=== PATIENT | female | born 1990 | race Asian ===

== ENCOUNTER 2020-08-13 08:16 | Day surgery (SDC) | payer BC ==
[2020-08-13 09:01] VITALS: BMI 24.3
[2020-08-13] MEDS ORDERED: hydrALAZINE 20 MG/ML VIAL SLOW IVP PRN (10:07)
== END 2020-08-13 12:13 | disposition home health service (06) ==
LOC: CSHLD/OP 08:16
PROVIDERS: ATTEND Student in an Organized Health Care Education/Training Program
DX: O47.1 False labor at or after 37 completed weeks of gestation (principal); Z3A.39 39 weeks gestation of pregnancy; Z88.8 Allergy status to other drugs, medicaments and biological substances
CPT/HCPCS: 99281

== ENCOUNTER 2020-08-14 03:29 | Inpatient (IN) | payer BC ==
[2020-08-14 03:48] VITALS: BMI 23.6
[2020-08-14] MEDS ORDERED: hydrALAZINE 20 MG/ML VIAL SLOW IVP PRN ×3 (04:25→16:16)
[2020-08-14] MEDS ORDERED: Ibuprofen 800 MG TAB PO PRN (06:50)
[2020-08-14] MEDS ORDERED: Ondansetron PF 4 MG/2 ML Vial IVP PRN ×3 (06:50→16:16)
[2020-08-14] MEDS ORDERED: Promethazine HCl 25 MG/ML VIAL IM PRN ×3 (06:50→16:16)
[2020-08-14] MEDS ORDERED: Butorphanol Tartrate 1 MG/ML VIAL SLOW IVP PRN (06:50)
[2020-08-14] MEDS ORDERED: Acetaminophen/Codeine 30-300mg Tablet PO PRN ×2 (06:50)
[2020-08-14] MEDS ORDERED: Lidocaine 1% (PF) 30 ML VIAL SC PRN (06:50)
[2020-08-14] MEDS: Lactated Ringer's 1,000 ML IV SCH ×2 (07:08→08:24)
[2020-08-14] MEDS ORDERED: Fentanyl 4 mcg/Bup 0.1% Cadd 100 ML ONE (07:30)
[2020-08-14 07:44] LABS: Hemoglobin 13.2 g/dL (12.0-15.5); Mean Corpuscular HGB CONC 33.8 g/dL (32.0-36.0); Mean Corpuscular Hemoglobin 33.9 pg (27.0-33.0); Mean Corpuscular Volume 100.3 fl (81.6-98.3); Mean Platelet Volume 12.6 fl (7.4-10.4); Platelet Count 101 10x3/uL (150-450); RBC Distribution Width 12.5 % (11.5-14.5); Red Blood Cell (RBC) Count 3.89 10x6/uL (3.90-5.03)
[2020-08-14] MEDS ORDERED: diphenhydrAMINE 50 MG/ML VIAL IVP PRN (08:43)
[2020-08-14] MEDS ORDERED: Naloxone HCl 0.4 mg/ml Vial IVP PRN ×2 (08:43)
[2020-08-14] MEDS ORDERED: Acetaminophen 325 MG TAB PO PRN (08:43)
[2020-08-14] MEDS ORDERED: Lactated Ringer's 500 ML IV PRN (08:43)
[2020-08-14] MEDS ORDERED: Eucerin (Mineral Oil/Petrolatum,White) 30 gm Jar TOP PRN (08:43)
[2020-08-14 08:44] LABS: Hep B Surf Ag Non-Reactive S/CO (NonReactive)
[2020-08-14 08:45] LABS: Syphilis Antibody Nonreactive (Nonreactive); Syphilis Antibody Index 0.05 S/CO (<1.00 Non-Reactive)
[2020-08-14] MEDS ORDERED: Communication Order-Pharmacy FS SCH (08:45)
[2020-08-14 09:06] LABS: HBSAg Index 0.13 S/CO (0-0.99)
[2020-08-14] MEDS: NS w/ Oxytocin 30 units 500 ML IVPB PRN ×2 (09:12→14:00)
[2020-08-14] MEDS ORDERED: ePHEDrine Sulfate 50 MG/10 ML VIAL SLOW IVP PRN (09:49)
[2020-08-14] MEDS ORDERED: Fentanyl 4 mcg/Bup 0.1667% 200 ML CADD EPIDURAL SCH (10:00)
[2020-08-14] MEDS ORDERED: Carboprost 250 MCG/ML AMP ONE (12:01)
[2020-08-14] MEDS ORDERED: Misoprostol 200 MCG TAB ONE (12:01)
[2020-08-14] MEDS ORDERED: Methylergonovine 0.2 MG/ML VIAL ONE (12:01)
[2020-08-14] MEDS ORDERED: Zolpidem Tartrate 5 MG TAB PO PRN (16:16)
[2020-08-14] MEDS ORDERED: Lanolin Ointment 7 GM TUBE TOP PRN (16:16)
[2020-08-14] MEDS ORDERED: diphenhydrAMINE 25 MG CAP PO PRN (16:16)
[2020-08-14] MEDS ORDERED: Milk Of Magnesia 30 ML UDCUP PO PRN (16:16)
[2020-08-14] MEDS ORDERED: HYDROcodone/Acetaminophen 5/325 mg Tablet PO PRN ×2 (16:16)
[2020-08-14] MEDS ORDERED: Adacel (T-DAP) 0.5 ML SYRINGE IM ONE (16:16)
[2020-08-14] MEDS ORDERED: Bisacodyl 10 MG SUPP PR PRN (16:16)
[2020-08-14] MEDS ORDERED: Benzocaine-Menthol 82.5 ML CAN TOP PRN (16:16)
[2020-08-14] MEDS ORDERED: Preparation H Ointment 28 GM TUBE PR PRN (16:16)
[2020-08-14] MEDS: Ferrous Sulfate 325 MG TAB PO SCH (17:30)
[2020-08-14] MEDS: Ibuprofen 800 MG TAB PO SCH (21:05)
[2020-08-14] MEDS: Docusate Calcium (SURFAK) 240 MG CAP PO SCH (21:06)
[2020-08-14 21:46] LABS: SARS-CoV-2 PCR by NAA Not Detected (NotDetected)
[2020-08-15] MEDS: Ibuprofen 800 MG TAB PO SCH ×3 (05:26→21:40)
[2020-08-15] MEDS: Ferrous Sulfate 325 MG TAB PO SCH ×2 (08:17→16:40)
[2020-08-15] MEDS: Docusate Calcium (SURFAK) 240 MG CAP PO SCH ×2 (09:25→21:40)
[2020-08-15] MEDS: Prenatal Vitamin 1 TAB PO SCH (09:25)
[2020-08-15] MEDS ORDERED: Bupivacaine 0.25% HCL 30 ML VIAL ONE (09:36)
[2020-08-16] MEDS: Ibuprofen 800 MG TAB PO SCH (05:15)
[2020-08-16 07:55] VITALS: BP 98/50; TEMP 98.7
[2020-08-16] MEDS: Ferrous Sulfate 325 MG TAB PO SCH (08:09)
[2020-08-16] MEDS: Docusate Calcium (SURFAK) 240 MG CAP PO SCH (08:37)
[2020-08-16] MEDS: Prenatal Vitamin 1 TAB PO SCH (08:37)
== END 2020-08-16 13:45 | disposition home or self-care (01) | DRG 807 ==
LOC: CSHLD/OP 03:29 → CSHLD 07:49 → CSHPP 16:16
PROVIDERS: ADMIT Student in an Organized Health Care Education/Training Program; ATTEND Student in an Organized Health Care Education/Training Program
PROC: 10E0XZZ Delivery of Products of Conception, External Approach (ICD-10-PCS; principal; 2020-08-14)
PROC: 0KQM0ZZ Repair Perineum Muscle, Open Approach (ICD-10-PCS; 2020-08-14)
DX: O70.1 Second degree perineal laceration during delivery (principal); Z37.0 Single live birth; Z20.822 Contact with and (suspected) exposure to COVID-19; Z3A.39 39 weeks gestation of pregnancy; Z88.8 Allergy status to other drugs, medicaments and biological substances
CPT/HCPCS: 36415; 51702; 85027; 86780; 86850; 86900; 86901; 87340; 87635; 99281; 99285; J2590; U0003; U0005